=== PATIENT | female | born 1965 | race Caucasian/White ===

== ENCOUNTER 2021-09-08 09:51 | Emergency (ER) | payer OTHER, SELFPAY ==
[2021-09-08 09:51] VITALS: BP 151/65; PULSE 68; RESP 15; TEMP 36.3; O2SAT 93; BMI 32.4
[2021-09-08 09:55] VITALS: O2SAT 96
--- NOTE | 2021-09-08 09:58 | ED.RN ---
SPO2 READING 3 WHICH IS NORMAL RANGE
[2021-09-08] MEDS: dexAMETHasone 4 MG Tablet 6 MG PO (10:36)
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
--- NOTE | 2021-09-08 10:51 | ED.RN ---
PER PT'S RECOVERY ROOM RN HODAN, NO DRUG TEST NEEDED AT THIS TIME.
== END 2021-09-08 11:19 | disposition home or self-care (01) ==
LOC: ED 10:46
PROVIDERS: Emergency Provider Emergency Medicine; PCP Family Medicine
DX: T59.811A Toxic effect of smoke, accidental (unintentional), initial encounter (principal); J70.5 Respiratory conditions due to smoke inhalation; X08.8XXA Exposure to other specified smoke, fire and flames, initial encounter
CPT/HCPCS: 99284

== ENCOUNTER → 2021-09-25 | Outpatient (CLI) | payer OTHER, SELFPAY | END | disposition home or self-care (01) | LOC: LABSPEC 15:30 | PROVIDERS: PCP Family Medicine; Visit Provider Family Medicine | DX: U07.1 COVID-19 (principal) | CPT/HCPCS: 87633; 87635; U0005; U0003 ==

== ENCOUNTER 2021-09-28 12:54 | Outpatient (CLI) | payer OTHER, SELFPAY ==
[2021-09-28] MEDS: 0.9% Saline Lock 10 ML Syringe IV (13:11)
[2021-09-28 13:12] VITALS: BP 141/77; PULSE 76; RESP 16; TEMP 36.4; O2SAT 95; BMI 32.4
[2021-09-28 14:10] VITALS: BP 125/77; PULSE 78; RESP 16; TEMP 37.1; O2SAT 95
[2021-09-28 14:57] VITALS: BP 128/75; PULSE 68; RESP 16; TEMP 36.9; O2SAT 95
== END 2021-09-28 15:10 | disposition home or self-care (01) ==
LOC: MS3OUT 12:54 → MS3 12:55
PROVIDERS: PCP Family Medicine; Referring Provider Nurse Practitioner Adult Health; Visit Provider Nurse Practitioner Adult Health
DX: Z23 Encounter for immunization (principal); U07.1 COVID-19
CPT/HCPCS: J7050; M0245; Q0245; A4216

== ENCOUNTER → 2024-03-31 | Outpatient (CLI) | payer OTHER, SELFPAY ==
[2024-03-31 15:55] LABS: Color, Urine Yellow (Yellow); Glucose, Dipstick Normal (Normal); Ketone-Dipstick Negative (Negative); Leukocyte Esterase-Dipstick Negative /ul (Negative); Nitrite-Dipstick Negative (Negative); Occult Blood-Urine Negative /ul (Negative); Protein-Dipstick Negative (Negative); Urine Bilirubin Dipstick Negative (Negative); Urine Clarity Clear (Clear); Urine Urobilinogen Normal (Normal)
[2024-03-31 16:02] LABS: Absolute Lymphocyte Count 2.61 X10^3/uL (0.83-4.51); Absolute Neutrophil Count 4.1 X10^3/uL (2.0-7.7); Basophil# 0.05 X10^3/uL; Basophil% 0.7 % (0-1); Eosinophil# 0.22 X10^3/uL; Eosinophils% 2.9 % (0-5); Hematocrit 45.9 % (37-47); Lymphocyte # 2.61 X10^3/ul (0.83-4.51); Lymphocyte % 34.7 % (19-41); Mean Corp Hgb Conc 32.7 g/dL (32-36); Mean Corpuscular Hgb 30.5 pg (27.0-32.0); Mean Corpuscular Volume 93.3 fL (81-99); Mean Platelet Vol. 11.2 fl (6.2-12.0); Monocyte# 0.55 X10^3/uL; Monocyte% 7.3 % (0-10); NRBC Flagged by Analyzer 0 % (0-5); Neutrophil # 4.07 X10^3/uL (2.7-7.7); Neutrophil % 54.1 % (47-70); Platelet Count 285 K/mm3 (150-450); RBC Distribution Width CV 11.5 % (11.6-14.6); RBC Distribution Width SD 39.5 fl (35.1-43.9); Red Blood Count 4.92 M/mm3 (4.2-5.4); White Blood Count 7.5 K/mm3 (4.4-11.0)
[2024-03-31 16:13] LABS: ALB/GLOB Ratio 1.1 RATIO (0.9-2.4); AST(SGOT) 22 U/L (15-37); Alanine Aminotransfer ALT/SGPT 35 U/L (13-56); Alkaline Phosphatase 66 U/L (45-117); Anion Gap 5 (5-15); BUN 19 mg/dL (7-18); BUN/Creat Ratio 21.5 RATIO (10-20); Calcium,Total 9.7 mg/dL (8.5-10.1); Chloride 103 mmol/L (98-107); Cholesterol 254 mg/dL (200); Creatinine, Serum 0.88 mg/dL (0.55-1.02); EST Glomerular Filtration Rate 70 mL/min (>60); Est Glom Filt Rate - Afr Amer 85 mL/min (>60); Globulin 3.5 g/dL (2.2-4.2); Glucose 107 mg/dL (74-106); High Density Lipoprotein 50 mg/dL; Potassium 4.4 mmol/L (3.5-5.1); Protein, Total 7.5 g/dL (6.4-8.2); Sodium Level 136 mmol/L (136-145); Triglycerides 216 mg/dL; Very Low Density Lipoprotein 43 mg/dL (5-40)
== END | disposition home or self-care (01) ==
LOC: BFHLAB 11:52
PROVIDERS: PCP Family Medicine; Referring Provider Family Medicine; Visit Provider Family Medicine
DX: Z00.00 Encounter for general adult medical examination without abnormal findings (principal); R31.29 Other microscopic hematuria
CPT/HCPCS: 36415; 80053; 80061; 81002; 85025